=== PATIENT | male | born 1960 | race Caucasian/White ===

== ENCOUNTER 2017-06-17 14:42 | Emergency (ER) | payer OTHER ==
[~2017-06-17] VITALS: Ht 185.4 cm; Wt 104.0 kg
[2017-06-17 14:49] VITALS: BP 121/73; PULSE 88; RESP 16; TEMP 98.1; O2SAT 99
[2017-06-17] MEDS ORDERED: PLAV75TA29 PO (15:03)
[2017-06-17] MEDS ORDERED: CLON1 PO (15:03)
[2017-06-17] MEDS ORDERED: CITA20TA4 PO (15:03)
[2017-06-17] MEDS ORDERED: LOVA10TA PO (15:03)
[2017-06-17] MEDS ORDERED: BENZ100 PO (15:21)
--- NOTE | 2017-06-17 15:22 | PD ---
HPI Chief Complaint: Cold / Flu Symptoms Time Seen by Provider: 14:54 Travel History International Travel<30 days: No Contact w/Intl Traveler<30days: No Traveled to known affect area: No History of Present Illness HPI 57-year-old male here with nasal congestion, cough, sneezing or sore throat for 2 weeks. Symptom for unrelieved by [id number] cough and cold medicines. No aggravating or alleviating factors. Denies fever or chills. No chest pain or shortness of breath. Symptoms severity is mild. PFSH Past Medical History Anxiety: Yes Depression: Yes High Cholesterol: Yes Cerebrovascular Accident: Yes Hypertension: Yes Tetanus Vaccination: < 5 Years Influenza Vaccination: Yes Past Surgical History Genitourinary Surgery: Yes (VASCETOMY) Social History Alcohol Use: Yes (OCC) Tobacco Use: Yes (06/12 PPD) Substance Use: No Allergies-Medications (Allergen,Severity, Reaction): Coded Allergies: No Known Allergies (Unverified , 06/17/17) Reported Meds & Prescriptions Reported Meds & Active Scripts Active Tessalon Perles (Benzonatate) 100 Mg Cap 200 Mg PO TID PRN Reported Citalopram (Citalopram Hydrobromide) 20 Mg Tab 20 Mg PO DAILY Klonopin (Clonazepam) 1 Mg Tab 1 Mg PO DIRECTED Lovastatin 10 Mg Tab 10 Mg PO DAILY Plavix (Clopidogrel Bisulfate) 75 Mg Tab 75 Mg PO DAILY Review of Systems Except as stated in HPI: all other systems reviewed are Neg General / Constitutional: No: Fever Eyes: No: Visual changes HENT: Positive: Sore Throat, Congestion, No: Headaches Cardiovascular: No: Chest Pain or Discomfort Respiratory: Positive: Cough Gastrointestinal: No: Abdominal Pain Genitourinary: No: Dysuria Physical Exam Narrative GENERAL: Alert well-appearing male. Nontoxic appearing. SKIN: Warm and dry. No rash. HEAD: Normocephalic. EYES: No scleral icterus. No injection or drainage. THROAT: Mild pharyngeal erythema without tonsillar hypertrophy or exudate. NECK: Supple, trachea midline. No JVD or lymphadenopathy. CARDIOVASCULAR: Regular rate and rhythm without murmurs, gallops, or rubs. RESPIRATORY: Breath sounds equal bilaterally. No accessory muscle use. GASTROINTESTINAL: Abdomen soft, non-tender, nondistended. MUSCULOSKELETAL: No cyanosis, or edema. BACK: Nontender without obvious deformity. No CVA tenderness. Data Data Last Documented VS Vital Signs Date Time Temp Pulse Resp B/P (MAP) Pulse Ox O2 Delivery O2 Flow Rate FiO2 06/17/17 14:58 Room Air 06/17/17 14:49 98.1 88 16 121/73 (89) 99 Orders Orders Ed Discharge Order (06/17/17 15:22) MDM Medical Decision Making Medical Screen Exam Complete: Yes Emergency Medical Condition: Yes Differential Diagnosis URI, bronchitis, PNA, Narrative Course 57 year old male with mild URI like symptoms. vital signs are stable. He is well appearing. Symptomatic treatment discussed with patient. Diagnosis Primary Impression: URI (upper respiratory infection) Qualified Codes: J06.9 - Acute upper respiratory infection, unspecified Referrals: Primary Care Physician Additional Instructions: tylenol or ibuprofen as needed for fever & pain. rest & stay well hydrated. Scripts Benzonatate (Tessalon Perles) 100 Mg Cap 200 MG PO TID Y for COUGH, #14 CAP 0 Refills Prov: Yareli Canela 06/17/17 Disposition: 01 DISCHARGE HOME Condition: Stable Yareli Canela Jun 17, 2017 15:22
== END 2017-06-17 15:39 | disposition home or self-care (01) ==
LOC: PHEFT 14:42
DX: J06.9 Acute upper respiratory infection, unspecified (principal); E78.00 Pure hypercholesterolemia, unspecified; I10 Essential (primary) hypertension; F32.9 Major depressive disorder, single episode, unspecified; F41.9 Anxiety disorder, unspecified; Z86.73 Personal history of transient ischemic attack (TIA), and cerebral infarction without residual deficits; F17.200 Nicotine dependence, unspecified, uncomplicated
CPT/HCPCS: 99283